=== PATIENT | female | born 1995 | race Caucasian/White ===

== ENCOUNTER 2017-04-05 15:57 | Emergency (ER) | payer OTHER ==
--- NOTE | 2017-04-05 17:43 | UC ---
Respiratory Complaint HPI - HPI Summary HPI Summary: 21 yo female with frequent cough x 1 week paroxysm of cough keeps her up and night occas feels light headed with cough no vomiting daughter with similar symptoms - History of Current Complaint Chief Complaint: UCRespiratory Stated Complaint: COUGH Time Seen by Provider: 04/05/17 17:20 Hx Obtained From: Patient Hx Last Menstrual Period: 04/04/17 Onset/Duration: Gradual Onset, Lasting Weeks - 1 Timing: Constant Severity Initially: Moderate Severity Currently: Moderate Pain Intensity: 2 Pain Scale Used: 0-10 Numeric Character: Cough: Nonproductive Aggravating Factors: Nothing Alleviating Factors: Nothing Associated Signs And Symptoms: Positive: Negative - Allergies/Home Medications Allergies/Adverse Reactions: Allergies Allergy/AdvReac Type Severity Reaction Status Date / Time Cefaclor [From [facility]] Allergy Mild hyperactivi Verified 04/05/17 16:10 ty Home Medications: Home Medications Dextromethorphan Polistirex [Robitussin 12 Hour Cough] 30 mg PO DAILY 04/05/17 [ History Confirmed 04/05/17] PMH/Surg Hx/FS Hx/Imm Hx Previously Healthy: Yes - Surgical History Surgical History: Yes Surgery Procedure, Year, and Place: tonsilectomy 2006 - Family History Known Family History: Positive: Cardiac Disease, Hypertension, Diabetes, Respiratory Disease - Social History Alcohol Use: None Substance Use Type: None Smoking Status (MU): Never Smoked Tobacco - Immunization History Vaccination Up to Date: Yes Review of Systems Constitutional: Negative Skin: Negative Eyes: Negative ENT: Negative Respiratory: Cough Cardiovascular: Negative Gastrointestinal: Negative Genitourinary: Negative Motor: Negative Neurovascular: Negative Musculoskeletal: Negative Neurological: Negative Psychological: Negative Is Patient Immunocompromised?: No All Other Systems Reviewed And Are Negative: Yes Physical Exam Triage Information Reviewed: Yes Appearance: Well-Appearing, No Pain Distress, Well-Nourished Vital Signs: Initial Vital Signs Temp 99.4 F 04/05/17 16:08 Pulse 88 04/05/17 16:08 Resp 18 04/05/17 16:08 BP 120/66 04/05/17 16:08 Pulse Ox 100 04/05/17 16:08 Vital Signs Reviewed: No Eyes: Positive: Conjunctiva Clear ENT: Positive: Hearing grossly normal, Pharynx normal, TMs normal. Negative: Nasal congestion, Nasal drainage, Tonsillar swelling, Tonsillar exudate, Trismus , Muffled/hoarse voice Neck: Positive: Supple, Nontender, No Lymphadenopathy Respiratory: Positive: Lungs clear, Normal breath sounds, No respiratory distress, No accessory muscle use Cardiovascular: Positive: RRR, No Murmur Musculoskeletal: Positive: ROM Intact, No Edema Neurological: Positive: Alert Psychological Exam: Normal Skin Exam: Normal UC Diagnostic Evaluation - Laboratory O2 Sat by Pulse Oximetry: 100 - normal/not hypoxic - Radiology Xray Interpretation: No Acute Changes Radiology Interpretation Completed By: ED Physician Respiratory Course/Dx - Differential Dx/Diagnosis Provider Diagnoses: acute cough. ? viral illness versus other Discharge - Discharge Plan Condition: Stable Disposition: HOME Prescriptions: Azithromycin TAB* [Zithromax TAB (Z-SHAKIRA) 250 mg #6 tabs] 250 mg PO DAILY #6 tab Benzonatate CAP* [Tessalon 100 MG CAP*] 100 - 200 mg PO TID PRN #28 cap PRN Reason: Cough Patient Education Materials: Acute Bronchitis (ED) Forms: *Work Release Referrals: EVARISTO Pettit [Primary Care Provider] - If Needed Additional Instructions: test for whooping cough pending recheck for new or worsening symptoms
[2017-04-05 18:17] VITALS: BP 116/75
--- NOTE | 2017-04-05 18:30 | RAD ---
INDICATION: Cough x1 week COMPARISON: None TECHNIQUE: PA and lateral views of the chest were obtained. FINDINGS: The heart and mediastinum are normal in size and contour. The lungs are grossly clear. There is no evidence of large pleural effusion. Visualized bones are normal for the patient's age. There is no radiographic evidence of free air beneath the diaphragm IMPRESSION: No radiographic evidence of acute cardiopulmonary disease.
== END 2017-04-05 18:27 | disposition home or self-care (01) ==
LOC: UCCORT 15:57
DX: R05 Cough (principal); R42 Dizziness and giddiness; Z88.1 Allergy status to other antibiotic agents
CPT/HCPCS: 71020; 81003; 87086; 87798; 99202; G0463

== ENCOUNTER 2018-01-01 15:37 | Emergency (ER) | payer OTHER ==
--- NOTE | 2018-01-01 16:14 | UC ---
Throat Pain/Nasal Agapito HPI - HPI Summary HPI Summary: 22 yo female presents with blister like rash to hands and a sore throat that started earlier today. She tells me that her daughter goes to daycare and was diagnosed with hand, foot, mouth dz yesterday. Pt denies fever, chills, cough, SOB, chest pain, abdominal pain, n/v/d/c. - History of Current Complaint Stated Complaint: SKIN COMPLAINTS, SORE THROAT Time Seen by Provider: 01/01/18 16:13 Hx Obtained From: Patient Hx Last Menstrual Period: 04/04/17 Onset/Duration: Sudden Onset Severity: Mild Pain Intensity: 3 Pain Scale Used: 0-10 Numeric - Allergies/Home Medications Allergies/Adverse Reactions: Allergies Allergy/AdvReac Type Severity Reaction Status Date / Time cefaclor [From [facility]] Allergy Unknown hyperactivi Verified 01/01/18 16:18 ty Home Medications: Home Medications Oral Contraceptive 1 tab PO DAILY 01/01/18 [History] PMH/Surg Hx/FS Hx/Imm Hx - Additional Past Medical History Additional PMH: None Previously Healthy: Yes - Surgical History Surgical History: Yes Surgery Procedure, Year, and Place: tonsilectomy 2006 - Family History Known Family History: Positive: Cardiac Disease, Hypertension, Diabetes, Respiratory Disease - Social History Occupation: Employed Full-time Lives: With Family Alcohol Use: None Substance Use Type: None Smoking Status (MU): Never Smoked Tobacco - Immunization History Vaccination Up to Date: Yes Review of Systems Constitutional: Negative Skin: Rash Eyes: Negative ENT: Sore Throat Respiratory: Negative Cardiovascular: Negative Gastrointestinal: Negative Neurovascular: Negative Neurological: Negative Psychological: Negative All Other Systems Reviewed And Are Negative: Yes Physical Exam - Summary Physical Exam Summary: GENERAL: NAD. WDWN. No pain distress. SKIN: B/L hands: scant 1mm blister-like papules mildly erythematous. No streaking, drainage, or bleeding. HEENT: Head: AT/NC Eyes: Conjunctiva clear without inflammation or discharge. Ears: Hearing grossly normal. TMs intact, no bulging, erythema, or edema. Nose: Nasal mucosa pink and moist. NTTP maxillary and frontal sinus. Throat: Posterior oropharynx mild erythema with blister-like lesions. No tonsillar enlargement. No exudates. Uvula midline. No hoarse voice or muffled voice. NECK: Supple. Nontender. No lymphadenopathy. CHEST: CTAB. No r/r/w. No accessory muscle use. Breathing comfortably and in no distress. CV: RRR. Without m/r/g. Pulses intact. Brisk cap refill. NEURO: Alert. CN II-XII grossly intact. PSYCH: Age appropriate behavior. Triage Information Reviewed: Yes Vital Signs: Vital Signs: Temp Pulse Resp BP Pulse Ox 98.2 F 88 20 118/76 100 01/01/18 16:19 01/01/18 16:19 01/01/18 16:19 01/01/18 16:19 01/01/18 16:19 Laboratory Tests 01/01/18 16:35 Group A Strep Rapid Negative Throat Pain/Nasal Course/Dx - Differential Dx/Diagnosis Provider Diagnoses: Hand, foot, mouth disease Discharge - Sign-Out/Discharge Documenting (check all that apply): Discharge/Admit/Transfer - Discharge Plan Condition: Stable Disposition: HOME Patient Education Materials: Hand, Foot, and Mouth Disease (ED) Referrals: No Primary Care Phys,NOPCP [Primary Care Provider] - Additional Instructions: If you develop a fever, shortness of breath, chest pain, new or worsening symptoms - please call your PCP or go to the ED. - Billing Disposition and Condition Condition: STABLE Disposition: Home
[2018-01-01 16:26] VITALS: BP 118/76
== END 2018-01-01 17:01 | disposition home or self-care (01) ==
LOC: UCCORT 15:37
DX: B08.4 Enteroviral vesicular stomatitis with exanthem (principal)
CPT/HCPCS: 87651; 99211; G0463

== ENCOUNTER 2018-04-13 19:55 | Emergency (ER) | payer OTHER ==
[2018-04-13 20:08] VITALS: BP 122/64
--- NOTE | 2018-04-13 20:16 | UC ---
Throat Pain/Nasal Agapito HPI - HPI Summary HPI Summary: 22 yo female presents with sore throat for the last 3 days. She has been taking ibuprofen for her discomfort with minimal relief. Swallowing makes her pain worse. Denies fever, chills, headache, cough, SOB - History of Current Complaint Chief Complaint: UCGeneralIllness Stated Complaint: ST Time Seen by Provider: 04/13/18 20:15 Hx Obtained From: Patient Hx Last Menstrual Period: 03/17/18 Onset/Duration: Gradual Onset Severity: Severe Pain Intensity: 9 Pain Scale Used: 0-10 Numeric - Allergies/Home Medications Allergies/Adverse Reactions: Allergies Allergy/AdvReac Type Severity Reaction Status Date / Time cefaclor [From [facility]] Allergy Unknown hyperactivi Verified 01/01/18 16:18 ty Home Medications: Home Medications D-Methorphan/PE/Acetaminophen [Day Multi-Symp Flu-Severe Cold] 1 each PO DAILY 04/13/18 [History Confirmed 04/13/18] PMH/Surg Hx/FS Hx/Imm Hx - Additional Past Medical History Additional PMH: None - Surgical History Surgical History: Yes Surgery Procedure, Year, and Place: tonsilectomy 2006 - Family History Known Family History: Positive: Cardiac Disease, Hypertension, Diabetes, Respiratory Disease - Social History Lives: With Family Alcohol Use: None Substance Use Type: None Smoking Status (MU): Never Smoked Tobacco - Immunization History Vaccination Up to Date: Yes Review of Systems Constitutional: Negative Skin: Negative Eyes: Negative ENT: Sore Throat Respiratory: Negative Cardiovascular: Negative Gastrointestinal: Negative Neurovascular: Negative Neurological: Negative Psychological: Negative All Other Systems Reviewed And Are Negative: Yes Physical Exam - Summary Physical Exam Summary: GENERAL: NAD. WDWN. No pain distress. SKIN: No rashes, sores, lesions, or open wounds. HEENT: Head: AT/NC Eyes: Conjunctiva clear without inflammation or discharge. Ears: Hearing grossly normal. TMs intact, no bulging, erythema, or edema. Nose: Nasal mucosa pink and moist. NTTP maxillary and frontal sinus. Throat: Posterior oropharynx mild erythema. No exudates. Uvula midline. No hoarse voice or muffled voice. NECK: Supple. Nontender. No lymphadenopathy. CHEST: CTAB. No r/r/w. No accessory muscle use. Breathing comfortably and in no distress. CV: RRR. Without m/r/g. Pulses intact. Cap refill <2seconds NEURO: Alert. PSYCH: Age appropriate behavior. Triage Information Reviewed: Yes Vital Signs: Initial Vital Signs Temp 98.2 F 04/13/18 20:02 Pulse 82 04/13/18 20:02 Resp 17 04/13/18 20:02 BP 122/64 04/13/18 20:02 Pulse Ox 99 04/13/18 20:02 Laboratory Tests 04/13/18 20:04 Group A Strep Rapid Negative Vital Signs Reviewed: Yes Throat Pain/Nasal Course/Dx - Course Course Of Treatment: POC strep negative. Pharyngitis - Differential Dx/Diagnosis Provider Diagnoses: Pharyngitis Discharge - Sign-Out/Discharge Documenting (check all that apply): Patient Departure All imaging exams completed and their final reports reviewed: No Studies - Discharge Plan Condition: Stable Disposition: HOME Prescriptions: Amoxicillin PO (*) [Amoxicillin 500 MG CAP*] 500 mg PO Q12H #14 cap Patient Education Materials: Pharyngitis (ED) Referrals: Jennifer Morales MD [Primary Care Provider] - Additional Instructions: If you develop a fever, shortness of breath, chest pain, new or worsening symptoms - please call your PCP or go to the ED. - Billing Disposition and Condition Condition: STABLE Disposition: Home
== END 2018-04-13 20:40 | disposition home or self-care (01) ==
LOC: UCCORT 19:55
DX: J02.9 Acute pharyngitis, unspecified (principal)
CPT/HCPCS: 87651; 99212; G0463

== ENCOUNTER 2019-02-19 08:28 | Emergency (ER) | payer BC, OTHER ==
[2019-02-19 08:44] VITALS: BP 105/63
--- NOTE | 2019-02-19 08:59 | UC ---
Cardiac HPI - HPI Summary HPI Summary: 23-year-old woman comes in with a chief complaint of chest pain. She recently traveled by air to [place]. She returned from [place] on February 16, 2019. That evening and into the next morning she developed mid sternal chest pain. She short of breath with it. Pain is worse with splinting. Right now she reports 8 out of 10 pain which she describes as pressure. Last night it was a 10 out of 10. Denies any history of GERD. She reports that her grandmother had a pulmonary embolus. She is not on control pills at this time. Last night she also had some right calf pain which is gone now. She does feel short of breath. She's lost her appetite. No cough no chest congestion no fevers no chills. Denies any abdominal pain. - History of Current Complaint Chief Complaint: UCChestPain Stated Complaint: CHEST DISCOMFORT Time Seen by Provider: 02/19/19 08:47 Hx Last Menstrual Period: 02/09/19 Pain Intensity: 8 - Allergy/Home Medications Allergies/Adverse Reactions: Allergies Allergy/AdvReac Type Severity Reaction Status Date / Time cefaclor [From [facility]] Allergy Unknown Unknown Verified 02/19/19 08:44 Reaction Details Home Medications: Home Medications NK [No Home Medications Reported] 02/19/19 [History Confirmed 02/19/19] PMH/Surg Hx/FS Hx/Imm Hx Previously Healthy: Yes - Surgical History Surgical History: Yes Surgery Procedure, Year, and Place: Tonsillectomy 2006 - Family History Known Family History: Positive: Cardiac Disease, Hypertension, Diabetes, Respiratory Disease, Blood Disorder - GRANDMOTHER PE - Social History Alcohol Use: None Substance Use Type: None Smoking Status (MU): Never Smoked Tobacco - Immunization History Vaccination Up to Date: Yes Review of Systems All Other Systems Reviewed And Are Negative: Yes Constitutional: Positive: Negative Skin: Positive: Negative Eyes: Positive: Negative ENT: Positive: Negative Respiratory: Positive: Shortness Of Breath Cardiovascular: Positive: Chest Pain Gastrointestinal: Positive: Other - SEE HPI Motor: Positive: Negative Neurovascular: Positive: Negative Musculoskeletal: Positive: Calf Tenderness - SEE HPI Neurological: Positive: Negative Psychological: Positive: Negative Is Patient Immunocompromised?: No Physical Exam Triage Information Reviewed: Yes Appearance: Well-Appearing, No Pain Distress, Well-Nourished Vital Signs: Initial Vital Signs Temp 97.7 F 02/19/19 08:33 Pulse 76 02/19/19 08:33 Resp 16 02/19/19 08:33 BP 105/63 02/19/19 08:33 Pulse Ox 99 02/19/19 08:33 Vital Signs Reviewed: Yes Eye Exam: Normal Eyes: Positive: Conjunctiva Clear Neck: Positive: Supple Respiratory: Positive: Lungs clear, Normal breath sounds, No respiratory distress, Other: - Mild tenderness to palpation on the sternum Cardiovascular: Positive: RRR Abdomen Description: Positive: Nontender, Soft Bowel Sounds: Positive: Present Musculoskeletal: Positive: Strength Intact, ROM Intact, No Edema - No calf tenderness on examination Neurological: Positive: Alert Psychological: Positive: Normal Response To Family, Age Appropriate Behavior Skin Exam: Normal Diagnostics - EKG Cardiac Rate: NL - AT 0833 Cardiac Rhythm: Sinus: Normal - 75BPM Ectopy: None ST Segment: Normal - Assessment/Plan Course Of Treatment: Discussed the EKG results with the patient. Her vital signs are normal. Due to the recent travel and also the right calf pain I do have concern of the possibility of pulmonary embolus. Other possibilities include pericarditis. Cannot rule out either one of these possibilities and therefore recommended further evaluation in the emergency department. I talked to Bridgette at the [place] emergency department. Patient will be going by POV. - Clinical Impression Provider Diagnosis: Chest pain Discharge - Sign-Out/Discharge Documenting (check all that apply): Patient Departure All imaging exams completed and their final reports reviewed: No Studies - Discharge Plan Condition: Stable Disposition: HOME-RECOMMEND TO ED Patient Education Materials: Chest Pain (ED) Referrals: Jennifer Morales MD [Primary Care Provider] - Additional Instructions: GO DIRECTLY TO THE EMERGENCY DEPARTMENT FOR FURTHER EVALUATION OF YOUR CHEST PAIN - Billing Disposition and Condition Condition: STABLE Disposition: Home-Recommend to ED
== END 2019-02-19 09:05 | disposition home health service (06) ==
LOC: UCCORT 08:28
DX: R07.9 Chest pain, unspecified (principal); Z82.49 Family history of ischemic heart disease and other diseases of the circulatory system
CPT/HCPCS: 93005; 99212; G0463